=== PATIENT | female | born 1970 | race Caucasian/White ===

== ENCOUNTER 2023-02-22 09:05 | Emergency (ER) | payer OTHER | END 2023-02-22 09:52 | disposition home or self-care (01) | LOC: JP.ED 09:05 | DX: H91.21 Sudden idiopathic hearing loss, right ear (principal); E78.00 Pure hypercholesterolemia, unspecified; Z91.011 Allergy to milk products; Z88.7 Allergy status to serum and vaccine | CPT/HCPCS: 99283 ==